=== PATIENT | female | born 1985 | race Caucasian/White ===

== ENCOUNTER 2020-10-25 13:08 | Inpatient (IN) ==
[2020-10-25] MEDS ORDERED: OXYTOCIN 30 UNITS/500 ML BAG IV PRN (14:13)
[2020-10-25 14:49] LABS: Hematocrit (blood only) 34.1 % (37-47); Hemoglobin 11.1 g/dL (12.0-16.0); Mean Corpuscular Hemoglobin 31.1 pg (25-34); Mean Corpuscular Hgb Conc 32.6 g/dL (32-36); Mean Corpuscular Volume 95.5 fL (80-100); Mean Platelet Volume 12.2 fL (7.4-10.4); Platelet Count 185 K/uL (130-400); RDW Coefficient of Variation 14.9 % (11.5-14.5); RDW Standard Deviation 52.3 fL (36.4-46.3); Red Blood Count 3.57 M/uL (4.2-5.4); White Blood Count 9.11 K/uL (4.8-10.8)
[2020-10-25] MEDS ORDERED: miSOPROStoL 50 MCG TAB PO ONE (15:25)
[2020-10-25] MEDS ORDERED: BUTORPHANOL TARTRATE 1 MG/ML VIAL IV PRN (19:49)
[2020-10-25] MEDS: miSOPROStoL 50 MCG TAB PO SCH (19:55)
[2020-10-25] MEDS: LACTATED RINGER'S 1,000 ML IV PRN ×2 (20:13→22:56)
[2020-10-25] MEDS ORDERED: ONDANSETRON INJ 2 MG/ML 2 ML VIAL IV PRN (22:18)
[2020-10-25] MEDS ORDERED: ePHEDrine sulfate 50 MG/ML AMP IV PRN (22:18)
[2020-10-25] MEDS ORDERED: NALOXONE HCL 1 MG in SODIUM CHLORIDE 0.9% 1000ML 1,000 ML IV PRN (22:18)
[2020-10-25] MEDS ORDERED: NALOXONE HCL 0.4 MG/1 ML VIAL/CARP IV PRN (22:18)
[2020-10-25] MEDS ORDERED: PROMETHAZINE HCL 25 MG in SODIUM CHLORIDE 0.9% 50 ML IV PRN (22:18)
[2020-10-25] MEDS ORDERED: diphenhydrAMINE 50 MG/ML VIAL IV PRN (22:18)
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
[2020-10-25] MEDS ORDERED: fentaNYL citrate 100 MCG/2 ML VIAL ONE (22:22)
[2020-10-25] MEDS ORDERED: SODIUM CHLORIDE 0.9% INJ 10 ML VIAL ONE (22:22)
[2020-10-25] MEDS ORDERED: BUPIVACAINE 0.25% 30 ML VIAL ONE (22:22)
[2020-10-25] MEDS ORDERED: ePHEDrine sulfate 50 MG/ML AMP ONE (22:22)
[2020-10-25] MEDS ORDERED: fentaNYL 2MCG/ML ROPIVACAINE 1.25MG/ML 100 ML BAG EPI ONE (22:22)
[2020-10-26] MEDS ORDERED: OXYTOCIN 30 UNITS/500 ML BAG IV PRN ×2 (01:51→17:03)
[2020-10-26] MEDS: miSOPROStoL 50 MCG TAB PO SCH ×2 (02:32→15:41)
[2020-10-26] MEDS: LACTATED RINGER'S 1,000 ML IV PRN (07:12)
[2020-10-26] MEDS: fentaNYL 2MCG/ML ROPIVACAINE 1.25MG/ML 100 ML BAG EPI PRN ×2 (07:12→13:23)
[2020-10-26] MEDS ORDERED: Nursing to Pharmacy Communication SCH (15:45)
[2020-10-26] MEDS ORDERED: LIDOCAINE 1% LOCAL 20 ML VIAL ONE (16:39)
[2020-10-26] MEDS ORDERED: BENZOCAINE 20% AER SPR 82.5 GM CAN EXT PRN (17:03)
[2020-10-26] MEDS ORDERED: ACETAMINOPHEN W/CODEINE #3 1 TAB PO PRN (17:03)
[2020-10-26] MEDS ORDERED: METHYLERGONOVINE MALEATE 0.2 MG/ML AMP IM ONE (17:03)
[2020-10-26] MEDS ORDERED: SUPERCREAM 0.870% 15 GM JAR EXT PRN (17:03)
[2020-10-26] MEDS ORDERED: oxyCODONE/ACETAMINOPHEN 5mg/325mg TAB PO PRN (17:03)
[2020-10-26] MEDS ORDERED: DIPHTHERIA/TETANUS/PERTUSSIS 0.5 ML SYR/VIAL IM ONE (17:03)
[2020-10-26] MEDS ORDERED: ACETAMINOPHEN 325 MG TAB PO PRN (17:03)
[2020-10-26] MEDS ORDERED: HYDROCORTISONE ACETATE 25 MG SUPP PR PRN (17:03)
--- NOTE | 2020-10-26 18:42 | Anesthesia Procedure Note ---
Date of Service October 26, 2020 Anesthesia Post Epidural Note Vital Signs Vital Signs: Temp Pulse Resp BP Pulse Ox 36.7 C 82 20 141/66 H 96 10/26/20 13:01 10/26/20 18:39 10/26/20 13:01 10/26/20 18:39 10/26/20 16:42 Pain Intensity Bilateral Abdomen: Pain Intensity: 0 Notes Mental Status: alert / awake / arousable and participated in evaluation Nausea / Vomiting: adequately controlled Pain: adequately controlled Airway Patency, RR, SpO2: stable & adequate BP & HR: stable & adequate Hydration State: stable & adequate Neuraxial Anesthesia: was administered and sensory block is resolving Anesthetic Complications: no major complications apparent and Pt Satisfied with anesthetic care Epidural: Removed without complications and With tip intact Notes: Epidural site clean, dry and intact. No signs of edema, erythema or bruising at insertion site. Pt instructed to request anesthesia if she has residual lower extremity numbness or if she develops lower extremity pain or weakness, back pain or headache.
--- NOTE | 2020-10-26 18:50 | Delivery Summary ---
DATE OF SERVICE: 10/26/2020 She is a 2, para 1. Blood type is A positive. Group B strep negative. Due date 10/29/2020. Followed in our office for care and delivery. She had some mild elevations of blood press ure towards the end of her , was managed with decreased activity. She was admitted with a f rank rupture of membranes on the day of admission. It was confirmed by [facility] and she was started on induction protocol. She was given p.o. Cytotec and then about 5 hours later, a second dose of p. o. Cytotec and then later she was switched to IV Pitocin. She received epidural for pain control. W ith the IV Pitocin, she made slow but steady progress, pushed out a live infant via direct occiput an terior position over an intact perineum. There was a tight nuchal cord, which could not be reduced o carol ann the head and had to be clamped and cut prior to delivery. was a little limp at first, so was suctioned through the mouth and nose and taken to the resuscitation unit for oxygen and stimulati on. Following this, cord blood was taken. With IV Pitocin, the placenta was removed intact. Inspection of the perineum revealed a laceration through the right labia minora, a superficial laceration on th e left side and a superficial perineal. The laceration on the right side was repaired anatomically b y infiltrating the labia minora with local with epinephrine and then using a mattress suture on the o utside and on the ridge to approximate the skin edges, a deep suture to approximate the deep tissue and then 2 other mattress sutures to approximate the inside. Good anatomical approximation. The one on the left side was superficial. We just used a running 3-0 chromic. The perineal laceration was also superficial and we just used 1 running 3-0 chromic. Following this, vaginal exam revealed no he matoma formation. Sponges were removed. The patient tolerated the procedure well and left the OR in good condition. Estimated blood loss 300 mL. Job ID: [id number]
[2020-10-26] MEDS: DOCUSATE SODIUM 100 MG CAP PO SCH (20:22)
[2020-10-26] MEDS: IBUPROFEN 600 MG TAB PO PRN (20:22)
[2020-10-27] MEDS: IBUPROFEN 600 MG TAB PO PRN ×3 (04:37→17:11)
[2020-10-27 06:48] LABS: Hematocrit (blood only) 30.2 % (37-47); Hemoglobin 9.8 g/dL (12.0-16.0); Mean Corpuscular Hemoglobin 30.2 pg (25-34); Mean Corpuscular Hgb Conc 32.5 g/dL (32-36); Mean Corpuscular Volume 92.9 fL (80-100); Mean Platelet Volume 11.9 fL (7.4-10.4); Platelet Count 173 K/uL (130-400); RDW Coefficient of Variation 15.1 % (11.5-14.5); RDW Standard Deviation 51.5 fL (36.4-46.3); Red Blood Count 3.25 M/uL (4.2-5.4); White Blood Count 13.07 K/uL (4.8-10.8)
[2020-10-27] MEDS ORDERED: PRENATAL VITAMIN 1 TAB PO SCH (08:00)
[2020-10-27] MEDS: DOCUSATE SODIUM 100 MG CAP PO SCH (09:03)
--- NOTE | 2020-10-27 09:49 | Obstetrical Progress Note ---
Date of Service October 27, 2020 Assessment & Plan Admission and Anticipated Discharge Date Admission Date: October 25, 2020 Physical Exam Physical Exam: abdomen soft and non tender no calf tenderness ambulating well vaginal bleeding scant hgb 9.8 Results & Data ([facility]) Vital Signs (Past 12 Hours) Vital Signs Temp Pulse Resp BP Pulse Ox 10/27/20 07:35 36.5 C 74 18 142/75 H 10/27/20 04:30 36.7 C 85 16 109/71 97 10/26/20 23:00 36.7 C 77 16 120/76 97
[2020-10-27] MEDS ORDERED: bisacodyL 5 MG TABEC PO SCH (20:00)
[2020-10-28] MEDS ORDERED: bisacodyL 10 MG SUPP PR PRN (06:00)
== END 2020-10-27 17:54 | disposition home or self-care (01) | DRG 807 ==
LOC: OPB 13:08 → 4S1 13:12 → 4N 10-26 20:21